=== PATIENT | male | born 1960 | race Caucasian/White ===

== ENCOUNTER 2018-07-10 07:24 | Observation (INO) | payer MEDICARE, OTHER ==
[~2018-07-10] VITALS: Ht 175.3 cm; Wt 102.1 kg
[~2018-07-10 07:24] MED LIST: ANORO INH; CIALIS5 MG PO; ESIDRIX25 MG PO; LOPID600 MG PO; LOSARTAN POTAS100 MG PO; METFORMIN HCL500 MG PO; PROAIR HFA INH8.5 GM INH; TORSEMIDE10 MG PO
--- OUTSIDE RECORDS SUMMARY | 2018-07-10 07:27 | XMS REPORT | Encounter Summary ---
Author Author HEMA Catalan, Stone Stevens Organization [facility] Address [address] [place] [address] Phone Care Team Providers Care Tool Profiling Machine Set Up Operator Name Role Phone BERYL Granger, Ismael Obando RN [phone] Conditions or Problems No information available. Medications Medication Instructions Start Date Stop Date Generic Name NDC Provider ASPIRIN EC 81 MG TBEC Take 1 tablet by mouth daily x 180 days. ASPIRIN [id number] Ismael Granger NP Medications Administered No information available. Allergies, Adverse Reactions, Alerts Observed no known allergies at
--- OUTSIDE RECORDS SUMMARY | 2018-07-10 07:27 | XMS REPORT | Encounter Summary ---
Author Author HEMA Catalan, Stone Stevens Organization [facility] Address [address] [place] [address] Phone Care Team Providers Care Lead Advisor Name Role Phone RIVERA Lin, Elisa Lala Unavailable Conditions or Problems No information available. Medications Medication Instructions Start Date Stop Date Generic Name [facility] Provider CORICIDIN HBP COLD/FLU 2-325 MG TABS Take 1 tablets by mouth twice a day x 5 days. CHLORPHENIRAMINE-ACETAMINOPHEN [id number] RIVERA Fuentes Medications Administered No information available. Allergies, Adverse Reactions, Alerts Observed no known allergies at
--- OUTSIDE RECORDS SUMMARY | 2018-07-10 07:27 | XMS REPORT | Encounter Summary ---
Author Author HEMA Stubbs, Tiara Rivers Organization [facility] Address [address] [place] [address] Phone Care Team Providers Care Back Strip Machine Operator Name Role Phone BERYL Granger, Ismael Obando RN [phone] Conditions or Problems No information available. Medications Medication Instructions Start Date Stop Date Generic Name NDC Provider ASPIRIN EC 81 MG TBEC Take 1 tablet by mouth daily x 180 days. ASPIRIN [id number] Ismael Granger NP Medications Administered No information available. Allergies, Adverse Reactions, Alerts Observed no known allergies at
--- OUTSIDE RECORDS SUMMARY | 2018-07-10 07:27 | XMS REPORT | Encounter Summary ---
Author Author BERYL Granger, Ismael Organization [facility] Address [address] [place] [address] Phone Care Team Providers Care Aerosol Line Operator Name Role Phone BERYL Granger, Ismael Unavailable RN [phone] Conditions or Problems No information available. Medications Medication Instructions Start Date Stop Date Generic Name NDC Provider ASPIRIN EC 81 MG TBEC Take 1 tablet by mouth daily x 180 days. ASPIRIN [id number] Ismael Granger NP Medications Administered No information available. Allergies, Adverse Reactions, Alerts Observed no known allergies at
--- OUTSIDE RECORDS SUMMARY | 2018-07-10 07:27 | XMS REPORT ---
Author Author [facility] Address Unknown Phone Unavailable Care Team Providers Care Crown Buffer Name Role Phone Roselia PRESSLEY Unavailable Unavailable Payers Payer Name Policy Type Policy Number Effective Date Expiration Date Problems This patient has no known problems. Allergies, Adverse Reactions, Alerts Allergy Name Allergy Type Status Severity Reaction(s) Onset Date Inactive Date Treating Clinician Comments No Known Allergies DA Active U 2018-02-24 00:00:00 No Known Allergies DA Active U 2017-05-13 00:00:00 Medications This patient has no known medications. Encounters Start Date/Time End Date/Time Encounter Type Admission Type Attending [facility] Care Department Encounter ID 2017-10-12 00:00:00 2017-11-24 00:00:00 Outpatient [facility] [id number] 2017-11-22 22:57:01 2017-11-22 22:57:01 Outpatient [facility] [id number] 2017-09-30 00:00:00 2017-10-03 00:00:00 Outpatient [facility] [id number] Results Test Description Test Time Test Comments Text Results Atomic Results Result Comments CHEST SINGLE (PORTABLE) [facility] [address] [address] Patient Name: DANNIE CHAVARRIA MR #: [id number] : 1960 Age/Sex: 56/M Req #: [id number] Adm Physician: Ordered by: MIKE PRESSLEY MD Report #: [id number] Location: ER Room/Bed: Procedure: [id number] DX/CHEST SINGLE (PORTABLE) Exam Date: 12/15/16 Exam Time: 939 REPORT STATUS: Signed PROCEDURE: CHEST SINGLE (PORTABLE) TECHNIQUE: Portable AP chest INDICATION: Chest pain COMPARISON: None. FINDINGS: The lungs are clear and symmetrically inflated. No pleural effusions. Normal heart size, mediastinal contour and pulmonary vasculature. Intact skeleton. CONCLUSION: Normal portable chest. Dictated by: Martha Handley M.D. on 12/15/2016 at 10:05 Electronically approved by: Martha Handley M.D. on 12/15/2016 at 10:05 Dictated By: MARTHA HANDLEY MD 1005 Transcribed By: JOHAN on 12/15/16 1005 COPY TO: MIKE PRESSLEY MD
--- OUTSIDE RECORDS SUMMARY | 2018-07-10 07:27 | XMS REPORT | Encounter Summary ---
Author Author Christo Salguero [employer] [facility] Address [address] [place] [address] Phone Care Team Providers Care Key Ringer Name Role Phone BERYL Granger, Ismael Obando RN [phone] Conditions or Problems No information available. Medications Medication Instructions Start Date Stop Date Generic Name NDC Provider ASPIRIN EC 81 MG TBEC Take 1 tablet by mouth daily x 180 days. ASPIRIN [id number] Ismael Granger NP Medications Administered No information available. Allergies, Adverse Reactions, Alerts Observed no known allergies at
--- OUTSIDE RECORDS SUMMARY | 2018-07-10 07:27 | XMS REPORT | Encounter Summary ---
Author Author Noemy, [employer] [facility] Address [address] [place] [address] Phone Care Team Providers Care Pharm Tech Name Role Phone RIVERA Lin, Elisa Lala Unavailable Conditions or Problems No information available. Medications Medication Instructions Start Date Stop Date Generic Name [facility] Provider CORICIDIN HBP COLD/FLU 2-325 MG TABS Take 1 tablets by mouth twice a day x 5 days. CHLORPHENIRAMINE-ACETAMINOPHEN [id number] RIVERA Fuentes Medications Administered No information available. Allergies, Adverse Reactions, Alerts Observed no known allergies at
--- OUTSIDE RECORDS SUMMARY | 2018-07-10 07:27 | XMS REPORT | Encounter Summary ---
Author Author HEMA Wakefield, [employer] [facility] Address [address] [place] [address] Phone Care Team Providers Care Renal Dialysis Rn Name Role Phone RIVERA Lin, Elisa Lala Unavailable Conditions or Problems No information available. Medications Medication Instructions Start Date Stop Date Generic Name [facility] Provider CORICIDIN HBP COLD/FLU 2-325 MG TABS Take 1 tablets by mouth twice a day x 5 days. CHLORPHENIRAMINE-ACETAMINOPHEN [id number] RIVERA Fuentes Medications Administered No information available. Allergies, Adverse Reactions, Alerts Observed no known allergies at
--- OUTSIDE RECORDS SUMMARY | 2018-07-10 07:27 | XMS REPORT | Encounter Summary ---
Author Author HEMA Koo, [place] Organization [facility] Address [address] [place] [address] Phone Care Team Providers Care Mixing Machine Feeder Name Role Phone RIVERA Lin, Elisa Lala Unavailable Conditions or Problems No information available. Medications Medication Instructions Start Date Stop Date Generic Name [facility] Provider CORICIDIN HBP COLD/FLU 2-325 MG TABS Take 1 tablets by mouth twice a day x 5 days. CHLORPHENIRAMINE-ACETAMINOPHEN [id number] RIVERA Fuentes Medications Administered No information available. Allergies, Adverse Reactions, Alerts Observed no known allergies at
[2018-07-10] MEDS ORDERED: KETOROLAC TROMETHAMINE 30 MG/ML VIAL IV STA (07:43)
[2018-07-10] MEDS ORDERED: METHYLPREDNISOLONE SOD SUCC 125 MG/2ML VIAL IV ONE (07:45)
[2018-07-10] MEDS ORDERED: ALBUTEROL/IPRATROPIUM 3 ML NEB NEB ONE (07:45)
--- NOTE | 2018-07-10 07:46 | NUR ---
RT called for breathing treatments
--- NOTE | 2018-07-10 08:33 | Diagnostic Imaging Report ---
EXAM: CHEST 2 VIEWS DATE: 07/10/2018 7:43 AM INDICATION:Cough, shortness of breath, bronchitis COMPARISON: Chest x-ray, 02/18/2016 (report only; images unavailable on PACS) FINDINGS: Lines and tubes: None Heart size normal. No focal pulmonary opacity, pleural effusion or pneumothorax. Density adjacent to the cardiac apex at the left lung base likely represents overlapping epicardial fat pad and scarring/atelectasis. This was also described on the previous exam. Upper abdomen unremarkable. No acute bony abnormality. IMPRESSION: No evidence for acute disease. Signed by: Dr. Lavell Engel M.D. on 07/10/2018 8:30 AM
[2018-07-10 08:58] LABS: BASOPHILS % 0.3 % (0.0-1.0); EOSINOPHILS # (AUTO) 0.1 (0.0-0.4); EOSINOPHILS % 0.7 % (0.0-6.0); HEMATOCRIT 46.3 % (38.2-49.6); HEMOGLOBIN 15.8 g/dL (14.0-18.0); LYMPHOCYTES # (AUTO) 3.7 (1.0-3.2); LYMPHOCYTES % 27.3 % (18.0-39.1); MEAN CORPUSCULAR HEMOGLOBIN 30.8 pg (28-32); MEAN CORPUSCULAR HGB CONC 34.1 g/dL (31-35); MEAN CORPUSCULAR VOLUME 90.3 fL (81-99); MONOCYTES % 7.5 % (4.4-11.3); NEUTROPHILS # (AUTO) 8.4 (2.1-6.9); NEUTROPHILS % 62.3 % (38.7-80.0); PLATELET COUNT 223 x10e3/uL (140-360); RED BLOOD COUNT 5.13 x10e6/uL (4.3-5.7); RED CELL DISTRIBUTION WIDTH 12.4 % (11.7-14.4)
[2018-07-10 09:20] LABS: ALANINE AMINOTRANSFERASE 21 IU/L (0-55); ALBUMIN 3.3 g/dL (3.5-5.0); ALBUMIN/GLOBULIN RATIO 1.1 (0.8-2.0); ALKALINE PHOSPHATASE 58 IU/L (40-150); ANION GAP 13.7 mmol/L (8-16); BLOOD UREA NITROGEN 24 mg/dL (7-26); BUN/CREATININE RATIO 30 (6-25); CALCIUM 9.2 mg/dL (8.4-10.2); CARBON DIOXIDE 27 mmol/L (22-29); CHLORIDE 98 mmol/L (98-107); CREATINE KINASE 63 IU/L (30-200); CREATININE, SERUM 0.81 mg/dL (0.72-1.25); EST GLOMERULAR FILTRATION RATE > 60 ML/MIN (60-); GLUCOSE 137 mg/dL (74-118); POTASSIUM 3.7 mmol/L (3.5-5.1); SODIUM 135 mmol/L (136-145)
[2018-07-10] MEDS ORDERED: LEVOFLOXACIN 500MG/D5W 100ML IV SCH (10:15)
[2018-07-10] MEDS: LEVOFLOXACIN 500MG/D5W 100ML 100 ML IV SCH (10:37)
[2018-07-10] MEDS: SODIUM CHLORIDE 0.9% 1000ML 1,000 ML IV SCH ×2 (10:37→20:15)
[2018-07-10] MEDS: ALBUTEROL/IPRATROPIUM 3 ML NEB NEB SCH ×3 (11:00→20:20)
[2018-07-10 11:15] VITALS: BP 162/101
[2018-07-10 13:14] VITALS: BP 162/101
[2018-07-10] MEDS: MORPHINE SULFATE INJ 4 MG/ML INJ 1ML IV PRN ×3 (13:15→21:10)
[2018-07-10 13:18] VITALS: BP 162/101
--- NOTE | 2018-07-10 13:30 | NUR ---
Visit made by the Spiritual Care Department Pastoral Visitor, Barb Osman. PV provided pastoral presence, prayer, hospitality, and supportive listening. Pastoral Visitor informed pt/family of the scope of Mud Cleaner Operator Services and availability. SHELBY PARADA Gang Hemstitching Machine Operator Spiritual Care Department O: [phone] Pager: [phone] ([phone] number calling from)
[2018-07-10 13:31] VITALS: BP 162/101
[2018-07-10 15:18] VITALS: BP 133/80
[2018-07-10] MEDS: GEMFIBROZIL 600 MG TAB PO SCH (17:45)
[2018-07-10] MEDS: METHYLPREDNISOLONE SOD SUCC 125 MG/2ML VIAL IV SCH (17:45)
[2018-07-10] MEDS: ONDANSETRON HCL INJ 2MG/ML 2ML 2 MG/ML VIAL IV PRN ×2 (17:46→21:10)
--- NOTE | 2018-07-10 19:00 | NUR ---
Got report from previous nurse. Patient in bed. Call light within reach.
--- NOTE | 2018-07-10 20:20 | NUR ---
Called and talked to Dr. Loaiza about patient wanting something for sleep. Dr. Loaiza ordered Restoril 15 mg PRN.
[2018-07-10 20:34] VITALS: BP 151/91
[2018-07-10] MEDS: TEMAZEPAM 15 MG CAP PO PRN (21:11)
[2018-07-11] VITALS (7 sets, daily range): BP systolic 140–168; BP diastolic 80–97
[2018-07-11] MEDS: ALBUTEROL/IPRATROPIUM 3 ML NEB NEB SCH ×6 (00:05→23:35)
[2018-07-11] MEDS: METHYLPREDNISOLONE SOD SUCC 125 MG/2ML VIAL IV SCH (01:35)
[2018-07-11] MEDS: ONDANSETRON HCL INJ 2MG/ML 2ML 2 MG/ML VIAL IV PRN ×2 (01:35→06:00)
[2018-07-11] MEDS: MORPHINE SULFATE INJ 4 MG/ML INJ 1ML IV PRN ×4 (01:36→20:26)
[2018-07-11] MEDS: SODIUM CHLORIDE 0.9% 1000ML 1,000 ML IV SCH ×2 (06:15→12:58)
[2018-07-11] MEDS ORDERED: MORPHINE SULFATE 2 MG/ML SYR 1ML IV PRN (06:45)
[2018-07-11] MEDS ORDERED: DEXTROSE 50% SYRINGE 50 ML IV PRN (07:15)
--- NOTE | 2018-07-11 07:15 | NUR ---
Gave report to oncoming nurse. Call light within reach.
[2018-07-11] MEDS ORDERED: NICOTINE 21 MG/EA PATCH TOP PRN (07:30)
--- NOTE | 2018-07-11 07:31 | NUR ---
instructed patient not to go out and smoke. instructed him with presence of REJI Curtis. called Dr Loaiza and nicotine patch ordered.
--- NOTE | 2018-07-11 07:54 | History and Physical ---
The patient is a 57-year-old male comes in with shortness of breath. HISTORY OF PRESENTING ILLNESSES: Mr. Gonzales Appiah 57-year-old gentleman with history of COPD, history of diabetes mellitus, history of hypertension, history of chronic drug addiction, and also history of smoking, was in usual state of health until about three weeks prior to admission, the patient started with upper respiratory symptoms, was treated in the clinic with steroids and antibiotics. The patient did not get any better. Went to ER as an outpatient and was given more steroids and antibiotics, and was not feeling better. The patient went to a third ER and an apparent diagnosis of right-sided pneumonia was made. The patient was continued on antibiotic and steroids and the patient did not feel any better yesterday. The patient came in tachypneic and also with increasing shortness of breath and the patient was admitted for failed outpatient COPD exacerbation. PAST MEDICAL HISTORY: History of hypertension, history of hyperlipidemia, history of diabetes mellitus, and history of chronic smoking. SOCIAL HISTORY: Positive for smoking. History of drug addiction. History of EtOH, negative for drug addiction at this time. The patient in the past has been in drug rehabs before. REVIEW OF SYSTEMS: Negative for chest pain. Positive for shortness of breath. Positive for some nausea. No vomiting. No diarrhea. No constipation. No rectal bleeding. No hematochezia. No hematemesis. MEDICATIONS: Medications at home are albuterol, ProAir, gemfibrozil 600 mg twice a day, hydrochlorothiazide 12.5 mg daily, losartan 100 mg daily, metformin 500 mg daily, Cialis 5 mg daily, torsemide 10 mg daily, and Anoro two puffs daily. PAST SURGICAL HISTORY: History of right shoulder surgery, arthroscopic and also history of lumbar surgeries. PHYSICAL EXAMINATION: VITAL SIGNS: Temperature is 95.8, pulse of 68, respirations of 20, blood pressure is 140/87, and pulse oximetry of 98% on 2 L of oxygen. HEENT: Normocephalic, atraumatic. Pupils are reactive to light and accommodation. CVS: S1, S2 normal. Regular rate and rhythm. LUNGS: Decreased air entry into all lung becerra. Positive for rhonchi on the right side. ABDOMEN: Nontender and nondistended. EXTREMITIES: No clubbing, no cyanosis, and/or no edema. LABORATORY DATA: The patient's laboratory values; initial white count of 13,000, hemoglobin of 15.8, hematocrit of 46.8, and neutrophil count is 8.4. Chemistry shows sodium 135, BUN of 24, creatinine is 0.81, and glucose 137. The patient's troponin has been negative. BNP was negative too. Microbiology, none done. IMAGING STUDIES: Show a chest x-ray of no evidence of acute disease. ASSESSMENT: Acute exacerbation of chronic obstructive pulmonary disease, possible pneumonia in making. PLAN: 1. Plan is to continue on his medication. The patient has been started on Solu-Medrol 80 mg IV q.6 hours. We will continue with that. Albuterol Atrovent treatment has been started. The patient is also on Levaquin 500 mg once a day every day. 2. For his hypertension, we will restart all his home medications, which include Esidrix, losartan, and clonidine as needed. 3. Hyperlipidemia. Continue medication. 4. History of smoking. Smoking counseling has been done. 5. History of diabetes. We will restart his metformin. Also do Chemsticks before meals and at bedtime. The patient has been on IV fluids 100 mL now. We will cut that back to TKO and also schedule a CT of the lung to rule out any other etiologies leading to consistent cough and congestion. Further recommendation per clinical course. We will keep the patient in-house. Repeat labs in the morning. MD BEATRICE Mercado/MODL /[id number]
[2018-07-11] MEDS: INSULIN LISPRO 100 UNIT/1 ML 3ML VIAL SQ SCH ×4 (08:12→21:16)
[2018-07-11] MEDS ORDERED: ANORO INH SCH (09:00)
[2018-07-11] MEDS ORDERED: METFORMIN HCL 500 MG TAB PO SCH (09:00)
[2018-07-11] MEDS ORDERED: TADALAFIL 5 MG PO SCH (09:00)
--- NOTE | 2018-07-11 09:03 | Diagnostic Imaging Report ---
EXAM: CT Chest WITH contrast INDICATION: COPD exacerbation, pneumonia COMPARISON: Chest radiograph 07/10/2018. TECHNIQUE: Chest was scanned utilizing a multidetector helical scanner from the lung apex through the level of the adrenal glands after administration of IV contrast. Coronal and sagittal reformations were obtained. Routine protocol was performed. IV CONTRAST: 100 mL of Isovue 370 RADIATION DOSE: Total DLP: 606.8 mGy*cm Dose modulation, iterative reconstruction, and/or weight based adjustment of the mA/kV was utilized to reduce the radiation dose to as low as reasonably achievable. COMPLICATIONS: None FINDINGS: LINES/ TUBES: None. LUNGS AND AIRWAYS: The central airways are patent. There is diffuse bronchial wall thickening. There are mild upper lobe predominant centrilobular emphysematous changes of the lungs. There is mild subsegmental atelectasis in the lower lobes. No evidence of pneumonia or pulmonary edema. Mild biapical pleural-parenchymal opacity. PLEURA: The pleural spaces are clear. HEART AND MEDIASTINUM: The thyroid gland is normal. No mediastinal, hilar or axillary lymphadenopathy. No cardiomegaly or pericardial effusion. Scattered atherosclerotic changes in the coronary arteries, thoracic aorta, and branch vessels. UPPER ABDOMEN: Limited contrast-enhanced views of the upper abdomen. Diffuse hepatic steatosis. BONES: Degenerative changes are noted in the visualized skeleton. No suspicious lytic or blastic lesions are identified. SOFT TISSUES: Unremarkable. IMPRESSION: Mild centrilobular emphysematous changes of the lungs without evidence of pneumonia. Diffuse mild bronchial wall thickening, which may reflect bronchitis. Signed by: Dr. Kenny Harris MD on 07/11/2018 9:00 AM
[2018-07-11] MEDS: LEVOFLOXACIN 500MG/D5W 100ML 100 ML IV SCH (09:25)
[2018-07-11] MEDS: LOSARTAN POTASSIUM 100 MG TAB PO SCH (09:25)
[2018-07-11] MEDS: HYDROCHLOROTHIAZIDE 25 MG TAB PO SCH (09:26)
[2018-07-11] MEDS: GEMFIBROZIL 600 MG TAB PO SCH ×2 (09:26→16:17)
[2018-07-11] MEDS: TORSEMIDE 10 MG TAB PO SCH (09:26)
[2018-07-11] MEDS: TADALAFIL 5 MG PO SCH (09:45)
[2018-07-11] MEDS: ANORO INH SCH (09:45)
[2018-07-11] MEDS ORDERED: METHYLPREDNISOLONE SOD SUCC 125 MG/2ML VIAL IV SCH (13:00)
[2018-07-11] MEDS ORDERED: SODIUM CHLORIDE 0.9% 50ML 50 ML ONE (13:31)
[2018-07-11] MEDS ORDERED: IOPAMIDOL 370 MG/ML 200 ML INFUS..BTL INJ ONE (13:31)
--- NOTE | 2018-07-11 18:55 | NUR ---
Got report from previous nurse. Call light within reach. Patient sitting in bed.
--- NOTE | 2018-07-11 19:52 | NUR ---
Called and talked to Dr. Loaiza about patient having wheezing and sugar is 365. Dr. Loaiza order 20 mg Lasix IV and Lantus 15 units.
[2018-07-11] MEDS ORDERED: FUROSEMIDE INJ 10 MG/ML 2 ML VIAL IV ONE (20:15)
[2018-07-11] MEDS: ONDANSETRON HCL 4 MG ORAL DISINTEGRATING TAB PO PRN (20:15)
[2018-07-11] MEDS: METHYLPREDNISOLONE SOD SUCC 40 MG/ML VIAL 1ML IV SCH (21:16)
[2018-07-11] MEDS: INSULIN GLARGINE 100 UNITS/ML VIAL SQ SCH (21:16)
[2018-07-11] MEDS: TEMAZEPAM 15 MG CAP PO PRN (21:27)
[2018-07-12] VITALS (7 sets, daily range): BP systolic 126–146; BP diastolic 74–91
[2018-07-12] MEDS: ALBUTEROL/IPRATROPIUM 3 ML NEB NEB SCH ×6 (03:55→23:00)
[2018-07-12] MEDS: ONDANSETRON HCL 4 MG ORAL DISINTEGRATING TAB PO PRN (04:39)
[2018-07-12] MEDS: MORPHINE SULFATE INJ 4 MG/ML INJ 1ML IV PRN ×4 (04:39→22:55)
[2018-07-12 05:43] LABS: BASOPHILS % 0.2 % (0.0-1.0); HEMATOCRIT 46.4 % (38.2-49.6); HEMOGLOBIN 15.6 g/dL (14.0-18.0); LYMPHOCYTES # (AUTO) 1.1 (1.0-3.2); LYMPHOCYTES % 5.7 % (18.0-39.1); MEAN CORPUSCULAR HEMOGLOBIN 30.6 pg (28-32); MEAN CORPUSCULAR HGB CONC 33.6 g/dL (31-35); MONOCYTES % 5.4 % (4.4-11.3); NEUTROPHILS # (AUTO) 16.2 (2.1-6.9); NEUTROPHILS % 86.9 % (38.7-80.0); PLATELET COUNT 249 x10e3/uL (140-360); RED CELL DISTRIBUTION WIDTH 12.3 % (11.7-14.4)
[2018-07-12 06:01] LABS: ANION GAP 16.4 mmol/L (8-16); BLOOD UREA NITROGEN 33 mg/dL (7-26); BUN/CREATININE RATIO 31 (6-25); CALCIUM 9.9 mg/dL (8.4-10.2); CARBON DIOXIDE 31 mmol/L (22-29); CHLORIDE 95 mmol/L (98-107); CREATININE, SERUM 1.05 mg/dL (0.72-1.25); EST GLOMERULAR FILTRATION RATE > 60 ML/MIN (60-); GLUCOSE 314 mg/dL (74-118); SODIUM 137 mmol/L (136-145)
[2018-07-12 06:19] LABS: POTASSIUM 5.4 mmol/L (3.5-5.1)
--- NOTE | 2018-07-12 06:59 | NUR ---
Gave report to oncoming nurse. Call light within reach. Patient in bed.
--- NOTE | 2018-07-12 07:16 | NUR ---
pt asleep resp even and unlabored at this time no distress noted, pt easily aroused, and able to make needs known, jeronimo light in reach.
--- NOTE | 2018-07-12 07:24 | Progress Note ---
DATE: SUBJECTIVE: The patient is a 57-year-old male comes in with acute exacerbation of COPD. Currently, the patient is still tight in his chest on walking. He is on 2 L of oxygen and still short of breath on exertion. No orthopnea. No PND noted. Blood sugars have been running high. The patient has been advised not to take any sugary drinks and/or candies. MEDICATIONS: At this time, albuterol, gemfibrozil, hydrochlorothiazide, insulin glargine, insulin lispro, Ketoralac as needed, Levaquin, losartan, metformin, steroid, methylprednisone, morphine sulfate as needed, and also Zofran as needed with temazepam. OBJECTIVE: VITAL SIGNS: Temperature is 96.0, pulse of 97, respirations of 20, blood pressure is 146/91, and pulse oximetry of 92%. HEENT: Normocephalic and atraumatic. The patient has a nasal cannula. CVS: S1 and S2 distant. LUNGS: Decreased air entry into all lung becerra. Positive for rhonchi on the right side. ABDOMEN: Nontender and nondistended, protuberant. EXTREMITIES: No clubbing and no cyanosis. Positive for little trace edema. IMAGING STUDIES: Done yesterday, CT was done to rule out pneumonia. The patient had central lobar emphysematous changes without evidence of pneumonia, diffuse mild bronchial wall thickening reflecting bronchitis. MICROBIOLOGY: None. LABORATORY VALUES: Today's white count is 18,000 with the left shift with neutrophil count of 16.2. ASSESSMENT: Acute chronic obstructive pulmonary disease exacerbation and acute bronchitis. PLAN: 1. Continue with Solu-Medrol and decrease Solu-Medrol to 20 mg b.i.d. Albuterol, Atrovent treatment have been given every 6 hours. The patient is also on Levaquin 500 mg once a day IV. 2. Hypertension. Continue with those antihypertensives. 3. Chronic hypoxia secondary to COPD exacerbation. Smoking cessation has been counseled and the patient will be assessed for home O2. 4. Diabetes, uncontrolled. The patient has been advised to modify his diet. The patient is currently on Lantus and also short-acting insulin. The patient will be present patient secondary to his continuous hypoxia and elevated white count and continue of COPD exacerbation. The patient can be discharged home in two days. Continue to monitor the patient. Disposition, again in 1-2 days to home. MD BEATRICE Mercado/WING /[id number]
[2018-07-12] MEDS: INSULIN LISPRO 100 UNIT/1 ML 3ML VIAL SQ SCH ×4 (07:30→21:58)
[2018-07-12] MEDS: ANORO INH SCH (09:00)
[2018-07-12] MEDS: TADALAFIL 5 MG PO SCH (09:00)
[2018-07-12] MEDS: LEVOFLOXACIN 500MG/D5W 100ML 100 ML IV SCH (09:19)
[2018-07-12] MEDS: METFORMIN HCL 500 MG TAB PO SCH (09:19)
[2018-07-12] MEDS: METHYLPREDNISOLONE SOD SUCC 40 MG/ML VIAL 1ML IV SCH ×2 (09:19→22:54)
[2018-07-12] MEDS: GEMFIBROZIL 600 MG TAB PO SCH ×2 (09:20→17:06)
[2018-07-12] MEDS: HYDROCHLOROTHIAZIDE 25 MG TAB PO SCH (09:20)
[2018-07-12] MEDS: TORSEMIDE 10 MG TAB PO SCH (09:20)
[2018-07-12] MEDS: LOSARTAN POTASSIUM 100 MG TAB PO SCH (09:41)
--- NOTE | 2018-07-12 10:47 | NUR ---
SOCIAL WORK INITIAL ASSESSMENT Beverage Host to bedside to discuss plan of care with patient/family. CM/SW role and care transitions discussed. Anticipated discharge plan discussed along with duration of care. CM/SW discussed patients right to make decisions in care. CM/SW work hours given. Patient lives: CURRENTLY AT [facility] IN [facility], ARRIVED VIA OWN PERSONAL VEHICLE AND WILL RETURN Admit/Transfer: VIA ED POA/Emergency contact: KEYA CHAVARRIA EX [phone] Current/Previous Home Health: NONE PCP/Follow-up Care: NONE Current/Previous DME: NONE Other Services: [facility] Employment Status: DISABLED Areas of Concerns: NONE Referral Needs: NONE Education Needs: NONE IMM/MILLER given and signed (if applicable): UPON DISCHARGE Goal for discharge: RETURN TO FACILITY VIA PRIVATE VEHICLE CM/SW left business card at the bedside with contact information. Name and number was also written on the patients whiteboard. Patient verbalized understanding of discussion. CM will follow-up with ongoing discharge and transition of care needs.
--- NOTE | 2018-07-12 18:57 | NUR ---
report given to oncoming nurse, for cont. care.
[2018-07-12] MEDS: INSULIN GLARGINE 100 UNITS/ML VIAL SQ SCH (21:58)
[2018-07-12] MEDS: TEMAZEPAM 15 MG CAP PO PRN (21:58)
[2018-07-13] VITALS: BP 137/81
[2018-07-13] MEDS: ALBUTEROL/IPRATROPIUM 3 ML NEB NEB SCH ×2 (03:00→06:38)
[2018-07-13 04:00] VITALS: BP 137/76
[2018-07-13 04:05] VITALS: BP 137/76
[2018-07-13] MEDS: MORPHINE SULFATE INJ 4 MG/ML INJ 1ML IV PRN (05:34)
[2018-07-13 05:44] LABS: BASOPHILS % 0.3 % (0.0-1.0); HEMATOCRIT 45.3 % (38.2-49.6); HEMOGLOBIN 15.9 g/dL (14.0-18.0); LYMPHOCYTES # (AUTO) 1.3 (1.0-3.2); LYMPHOCYTES % 11.3 % (18.0-39.1); MEAN CORPUSCULAR HEMOGLOBIN 31.1 pg (28-32); MEAN CORPUSCULAR HGB CONC 35.1 g/dL (31-35); MEAN CORPUSCULAR VOLUME 88.5 fL (81-99); MONOCYTES # (AUTO) 0.6 (0.2-0.8); MONOCYTES % 5.4 % (4.4-11.3); NEUTROPHILS # (AUTO) 9.1 (2.1-6.9); NEUTROPHILS % 81.4 % (38.7-80.0); PLATELET COUNT 228 x10e3/uL (140-360); RED BLOOD COUNT 5.12 x10e6/uL (4.3-5.7); RED CELL DISTRIBUTION WIDTH 12.1 % (11.7-14.4)
[2018-07-13 06:06] LABS: ANION GAP 17.1 mmol/L (8-16); BLOOD UREA NITROGEN 33 mg/dL (7-26); BUN/CREATININE RATIO 33 (6-25); CALCIUM 9.6 mg/dL (8.4-10.2); CARBON DIOXIDE 30 mmol/L (22-29); CHLORIDE 93 mmol/L (98-107); EST GLOMERULAR FILTRATION RATE > 60 ML/MIN (60-); GLUCOSE 277 mg/dL (74-118); POTASSIUM 5.1 mmol/L (3.5-5.1); SODIUM 135 mmol/L (136-145)
[2018-07-13] MEDS: INSULIN LISPRO 100 UNIT/1 ML 3ML VIAL SQ SCH (07:40)
[2018-07-13 07:51] VITALS: BP 134/80
--- NOTE | 2018-07-13 08:17 | Progress Note ---
DATE: SUBJECTIVE: The patient is a 57-year-old gentleman with history of failed outpatient COPD exacerbation. The patient feels much better today. Breathing has gone and inspiratory wheezes have gone. The patient is free of chest pain and no shortness of breath. Has been walking on the floors without new complaints. PHYSICAL EXAMINATION: VITAL SIGNS: Temperature is 97, pulse of 73, respirations of 16, blood pressure is 137/76, and pulse oximeter of 93%. HEENT: Normocephalic and atraumatic. Pupils are reactive to light and accommodation. CVS: S1 and S2 normal. Regular rate and rhythm. ABDOMEN: Protuberant. LUNGS: Positive for scattered, inspiratory wheezes, much better. No rhonchi felt. EXTREMITIES: No clubbing. No cyanosis. No edema. LABORATORY VALUES: Today's white count is 11,000. The patient's neutrophil count is 81,000. Chemistries show sodium 135, potassium 5.1, BUN of 33 and creatinine of 1. Glucoses have been trending high secondary to his prednisone intake. ASSESSMENT: 1. Acute chronic obstructive pulmonary disease exacerbation. 2. History of diabetes mellitus exacerbated by steroids. 3. Hypertension. 4. Chronic history of smoking. 5. Chronic history of drug abuse. PLAN: Plan is to discharge the patient to home on prednisone 20 mg twice a day. The patient also will be discharged on Levaquin 500 mg once a day for five days. The patient will be followed up with me in about a week's time. He does have albuterol and Atrovent treatment at home, we will continue with that. For diabetes, continue with metformin and also diet control. Obesity, continue with diet control again. The patient is advised to some stop smoking and also nicotine patches to be bought from outside. Further recommendation per clinical course. The patient has been given strict ER warnings and also has been asked to follow up with me in about a week's time. MD BEATRICE Mercado/MODL /[id number]
[2018-07-13] MEDS: TORSEMIDE 10 MG TAB PO SCH (08:35)
[2018-07-13] MEDS: ANORO INH SCH (08:35)
[2018-07-13] MEDS: HYDROCHLOROTHIAZIDE 25 MG TAB PO SCH (08:35)
[2018-07-13] MEDS: METHYLPREDNISOLONE SOD SUCC 40 MG/ML VIAL 1ML IV SCH (08:35)
[2018-07-13] MEDS: METFORMIN HCL 500 MG TAB PO SCH (08:35)
[2018-07-13] MEDS: LOSARTAN POTASSIUM 100 MG TAB PO SCH (08:35)
[2018-07-13] MEDS: TADALAFIL 5 MG PO SCH (08:35)
[2018-07-13] MEDS: GEMFIBROZIL 600 MG TAB PO SCH (08:35)
[2018-07-13] MEDS ORDERED: PREDNISONE20 MG PO (09:04)
[2018-07-13] MEDS ORDERED: LEVAQUIN500 MG PO (09:04)
[2018-07-13 09:24] VITALS: BP 134/80
--- NOTE | 2018-07-13 09:28 | NUR ---
Patient discharged home, prescription given, IV canula removed with tip intact, no ss of infiltration noted, denies any SOB or chest pain, no distress noted. all belongings with patient, escorted with him to walk front lobby
== END 2018-07-13 09:15 | disposition home or self-care (01) ==
LOC: ER 07:24 → ERHOLD 10:04 → IMCU 11:10
PROVIDERS: ADMIT Family Medicine; ATTEND Family Medicine
DX: J44.0 Chronic obstructive pulmonary disease with (acute) lower respiratory infection (principal); J20.9 Acute bronchitis, unspecified; J44.1 Chronic obstructive pulmonary disease with (acute) exacerbation; I10 Essential (primary) hypertension; E11.9 Type 2 diabetes mellitus without complications; E78.00 Pure hypercholesterolemia, unspecified; F17.210 Nicotine dependence, cigarettes, uncomplicated; R09.02 Hypoxemia; E66.9 Obesity, unspecified; Z68.33 Body mass index [BMI] 33.0-33.9, adult; Z79.84 Long term (current) use of oral hypoglycemic drugs
CPT/HCPCS: 36415 ×4; 71046; 71260; 80048 ×2; 80053; 82550; 82553; 82948 ×4; 83036; 83880; 84484; 85025 ×3; 93005; 94640 ×7; 99284; G0378 ×4; J1815; J1885; J1940; J1956 ×3; J2270 ×4; J2405 ×2; J2920 ×3; J2930 ×2; J7030 ×2; Q0162; Q9967

== ENCOUNTER 2018-10-08 12:08 | Emergency (ER) | payer MEDICARE ==
[~2018-10-08] VITALS: Ht 175.3 cm; Wt 102.1 kg
[~2018-10-08 12:08] MED LIST changes: +LEVAQUIN500 MG PO; +PREDNISONE20 MG PO
[2018-10-08] MEDS ORDERED: METHYLPREDNISOLONE SOD SUCC 125 MG/2ML VIAL IV STA (12:42)
[2018-10-08] MEDS ORDERED: ALBUTEROL SULF 0.083% NEB SOLN 3 ML NEB NEB STA (12:42)
[2018-10-08] MEDS ORDERED: SODIUM CHLORIDE 0.9% 1000ML 1,000 ML IV STA (12:42)
[2018-10-08] MEDS ORDERED: ASPIRIN 81 MG CHEW TAB PO ONE (12:45)
[2018-10-08] MEDS ORDERED: IPRATROPIUM BROMIDE 0.02% 2.5 ML NEB NEB ONE (12:45)
[2018-10-08 13:17] LABS: BASOPHILS % 0.1 % (0.0-1.0); EOSINOPHILS % 0.1 % (0.0-6.0); HEMATOCRIT 40.1 % (38.2-49.6); HEMOGLOBIN 14.2 g/dL (14.0-18.0); LYMPHOCYTES # (AUTO) 1.6 (1.0-3.2); LYMPHOCYTES % 16.7 % (18.0-39.1); MEAN CORPUSCULAR HEMOGLOBIN 31.4 pg (28-32); MEAN CORPUSCULAR HGB CONC 35.4 g/dL (31-35); MEAN CORPUSCULAR VOLUME 88.7 fL (81-99); MONOCYTES # (AUTO) 0.4 (0.2-0.8); MONOCYTES % 4.1 % (4.4-11.3); NEUTROPHILS # (AUTO) 7.6 (2.1-6.9); NEUTROPHILS % 78.5 % (38.7-80.0); PLATELET COUNT 282 x10e3/uL (140-360); RED BLOOD COUNT 4.52 x10e6/uL (4.3-5.7); RED CELL DISTRIBUTION WIDTH 12.3 % (11.7-14.4)
[2018-10-08 13:27] LABS: BILIRUBIN,URINE NEGATIVE (NEGATIVE); CLARITY,URINE SL CLOUDY (CLEAR); COLOR,URINE YELLOW (YELLOW); KETONES,URINE TRACE (NEGATIVE); LEUKOCYTE ESTERASE ,URINE NEGATIVE (NEGATIVE); NITRITE,URINE NEGATIVE (NEGATIVE); PROTEIN,URINE DIPSTICK NEGATIVE (NEGATIVE); URINE UROBILINOGEN 0.2 mg/dL (0.2 - 1)
[2018-10-08 13:32] LABS: INR 0.97; PROTHROMBIN TIME 13.4 seconds (11.9-14.5)
[2018-10-08 13:33] LABS: PARTIAL THROMBOPLASTIN TIME 26.1 seconds (23.8-35.5)
[2018-10-08 13:33] LABS: AMORPHOUS SEDIMENT,URINE FEW (FEW); BACTERIA,URINE MODERATE /HPF; EPITHELIAL CELLS,URINE MODERATE /LPF; MUCUS,URINE FEW (RARE); RBC,URINE 0-5 /HPF (0-5)
[2018-10-08 13:39] LABS: ALANINE AMINOTRANSFERASE 30 IU/L (0-55); ALBUMIN 4.3 g/dL (3.5-5.0); ALBUMIN/GLOBULIN RATIO 1.4 (0.8-2.0); ALKALINE PHOSPHATASE 64 IU/L (40-150); ANION GAP 17.3 mmol/L (8-16); BLOOD UREA NITROGEN 20 mg/dL (7-26); BUN/CREATININE RATIO 17 (6-25); CALCIUM 10.4 mg/dL (8.4-10.2); CARBON DIOXIDE 24 mmol/L (22-29); CHLORIDE 102 mmol/L (98-107); CREATINE KINASE 78 IU/L (30-200); CREATININE, SERUM 1.15 mg/dL (0.72-1.25); EST GLOMERULAR FILTRATION RATE > 60 ML/MIN (60-); GLUCOSE 202 mg/dL (74-118); POTASSIUM 4.3 mmol/L (3.5-5.1); SODIUM 139 mmol/L (136-145)
[2018-10-08] MEDS ORDERED: HYDROCODONE/APAP 10MG-325MG TAB PO NR (15:00)
--- NOTE | 2018-10-08 15:04 | Diagnostic Imaging Report ---
EXAMINATION: CHEST SINGLE (NOT PORTABLE) INDICATION: Cough, shortness of breath COMPARISON: Chest CT of 07/11/2018 FINDINGS: TUBES and LINES: None. LUNGS: The lung volumes are normal. No focal consolidation or pulmonary edema. Mild subsegmental atelectasis at the left lung base. PLEURA: No pleural effusion or pneumothorax. HEART AND MEDIASTINUM: The cardiomediastinal silhouette is normal in size and contour. BONES AND SOFT TISSUES: No acute fracture or dislocation. UPPER ABDOMEN: No free air under the diaphragm. IMPRESSION: No focal pneumonia or pulmonary edema. Mild subsegmental atelectasis at the left lung base. Signed by: Cedrick Blanco MD on 10/08/2018 3:01 PM
[2018-10-08 16:02] VITALS: BP 138/89
== END 2018-10-08 16:16 | disposition home or self-care (01) ==
LOC: ER 12:08
DX: R06.00 Dyspnea, unspecified (principal); R05 Cough; R07.89 Other chest pain; J44.1 Chronic obstructive pulmonary disease with (acute) exacerbation; I10 Essential (primary) hypertension; E11.9 Type 2 diabetes mellitus without complications; B19.20 Unspecified viral hepatitis C without hepatic coma; G89.29 Other chronic pain; F17.210 Nicotine dependence, cigarettes, uncomplicated
CPT/HCPCS: 36415; 71045; 80053; 81001; 82550; 82553; 83735; 83880; 84484; 85025; 85610; 85730; 93005; 94640; 99284; J2930; J7030